=== PATIENT | male | born 1950 | race Caucasian/White ===

== ENCOUNTER 2023-03-05 10:46 | Emergency (ER) | payer OTHER, SELFPAY ==
[2023-03-05 10:53] VITALS: BP 124/58; PULSE 88; RESP 20; TEMP 37.1; O2SAT 97
--- NOTE | 2023-03-05 15:00 | W.ED.GENAD ---
Discharge Plan Disposition Patient Disposition: Home Discharge Details Clinical Impression: COVID-19 Primary Care Provider: [place] [place] Provider: Issa Sosa Discharge Instructions Instructions: COVID-19 (Coronavirus Disease 2019) (ED) Additional Instructions: take paxlovid as provided, follow up with your PCP as needed isolate for 5 days and continue to wear a mask in public afterwards if you any symptoms Medical Decision Making Emergent evaluation of positive COVID test. At this time the patient has no concerning systemic symptoms. His vital signs are normal. He does not have any increased work of breathing. His breath sounds are clear. I do not feel he needs chest x-ray or further emergent evaluation. He is requesting a Paxlovid prescription. Is no home medications listed and denies medication to nursing staff. Will prescribe Paxlovid. Recommend following up with his primary care provider and return precautions provided to the patient. Medical Records Medical records reviewed: Yes I reviewed the patient's medical records. Lab Data Lab results reviewed: Yes I reviewed the patient's lab results. HPI General Date/Time Provider Initiated Documentation: 03/05/23 14:55. Limitations to Documentation: no limitations. Information obtained by: patient. HPI Narrative: 72-year-old gentleman with past medical history of COPD presents for evaluation of positive COVID test. He reports having symptoms that started yesterday. He is having bodyaches, fever, nasal congestion and cough. Symptoms also include sinus pressure and sore throat. He took a COVID test at home and it was positive. He reports that he came here today because he would like to have Paxlovid. Related Data Allergies Allergy/AdvReac Type Severity Reaction Status Date / Time No Known Allergies Allergy Unverified 03/05/23 10:52 General Stated Complaint: RespSymp ASHLEY: 4 PFSH All Active Problems COVID-19 (Acute) Social History Smoking/Tobacco Use Status: Former Tobacco Use Smoking risk assessment performed?: Yes Alcohol Intake: current Alcohol Intake frequency: 0-2 drinks per day Drug use: Occasionally Substance use type: marijuana Exam Narrative Exam Narrative: Review of Systems: All systems reviewed & are unremarkable except as noted in HPI and below Well-developed, no acute distress NACT PERRL, normal conjunctiva RRR Unlabored respiratory effort, breath sounds clear bilaterally. No hypoxia, no increased work of breathing Nondistended abdomen Extremities w/o deformity, no cyanosis, no edema No rashes or lesions. no focal neurologic deficits Appropriate mood and affect Course Vital Signs Vital signs: Vital Signs Temperature 37.1 C 03/05/23 10:53 Pulse 88 03/05/23 10:53 Respiratory Rate 20 03/05/23 10:53 Blood Pressure 124/58 L 03/05/23 10:53 Pulse Oximetry 97 03/05/23 10:53 Temperature 37.1 C 03/05/23 10:53 Temperature Source Oral 03/05/23 10:53 Pulse 88 03/05/23 10:53 Respiratory Rate 20 03/05/23 10:53 Respiratory Effort Normal 03/05/23 10:57 Respiratory Depth Normal 03/05/23 10:57 Blood Pressure 124/58 L 03/05/23 10:53 Blood Pressure Position Sitting 03/05/23 10:53 Pulse Oximetry 97 03/05/23 10:53 Oxygen Delivery Method Room Air 03/05/23 10:53 Oxygen Flow Rate 0 03/05/23 10:53
== END 2023-03-05 15:22 | disposition home or self-care (01) ==
PROVIDERS: Emergency Provider Emergency Medicine
DX: U07.1 COVID-19 (principal); Z11.52 Encounter for screening for COVID-19; J02.9 Acute pharyngitis, unspecified; R05.9 Cough, unspecified
CPT/HCPCS: 87426; 99283